=== PATIENT | female | born 1995 ===

== ENCOUNTER → 2016-08-09 | Outpatient (CLI) | payer BC ==
--- NOTE | 2016-08-09 11:34 | DX ---
Left Ankle, 4 Views History: Lateral pain and swelling,, post trauma August 08, 2016, patient does not remember how inju ry occurred Findings: There is lateral soft tissue swelling. No fracture, effusion, arthritis or malalignment is identified. The talar dome looks normal. Impression: Lateral soft tissue swelling.
== END ==
LOC: BMCIMAGING 10:43
PROVIDERS: ATTEND Family Medicine
DX: M79.89 Other specified soft tissue disorders (principal)